=== PATIENT | male | born 1960 | race Caucasian/White ===

== ENCOUNTER 2020-07-28 14:12 | Emergency (ER) | payer OTHER, SELFPAY ==
[2020-07-28 14:14] VITALS: BP 177/104; PULSE 92; RESP 14; TEMP 36.4; O2SAT 99; BMI 23.8
--- NOTE | 2020-07-28 14:25 | DI.RAD.S_ITS ---
PROCEDURE: XR CHEST 1V INDICATIONS: chest pain TECHNIQUE: One view of the chest was acquired. COMPARISON: None. FINDINGS: Surgical changes and devices: None. Lungs and pleura: Lungs are clear. No pleural effusions or pneumothorax. Mediastinum: Mediastinal contours appear normal. Heart size is normal. Bones and chest wall: No suspicious bony lesions. Overlying soft tissues appear unremarkable. IMPRESSION: No acute disease. Dictated by: Rahul Vela M.D. on 07/28/2020 at 15:01 Approved by: Rahul Vela M.D. on 07/28/2020 at 15:02
[2020-07-28] MEDS: KETOROLAC 60 MG/2 ML VIAL 30 MG IV (14:45)
--- NOTE | 2020-07-28 14:45 | ED.NECK ---
HPI - Neck Pain/Injury <BETH Manning - Last Filed: 07/28/20 17:49> General Chief Complaint: Neck Pain/Injury Stated Complaint: Neck, shoulder and left arm pain Time Seen by Provider: 07/28/20 14:24 Mode of arrival: EMS Limitations: no limitations History of Present Illness HPI Narrative: 60yo male current smoker, presents emergency department for left-sided arm pain that started this morning. Patient states yesterday he had some neck pain and a dull aching headache, he went to the chiropractor and had his neck adjusted. He applied ice to the back of his neck and icy Hot cream which helped. Patient states he was pain free when he went to bed. This morning when he woke up he felt pain-free, however he was in the bathroom shaving his face when he developed a sudden left sided sharp stabbing pain that radiated down his arm. Patient states during this time he felt flushed and he felt like his face was red. Patient called 911 as he was concerned he may have been having heart attack. He denied chest pain or shortness of breath during this incident. When patient arrives via EMS, he reports continued left arm pain that is worse with movement and palpation to his left shoulder. Patient states the pain is worse when he moves his left arm across his chest. He denies any neck pain, chest pain, shortness of breath, nausea, vomiting, diarrhea, vision changes, headaches, weakness, numbness, tingling, or any other concerns. Patient states he takes a daily aspirin for medication and nothing else. He denies any cardiac history. 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 Related Data Home Medications Medication Instructions Recorded Confirmed aspirin 81 mg PO QDAY #0 04/17/16 02/24/18 Previous Rx's Medication Instructions Recorded Lactobacillus acidophilus 1.5 mg 100 mmu cells PO DAILY #60 cap 02/24/18 (250 million cell) capsule cyclobenzaprine 10 mg tablet 10 mg PO BEDTIME #20 tab 02/24/18 cyclobenzaprine 10 mg PO TID PRN #10 tab 07/28/20 Allergies Allergy/AdvReac Type Severity Reaction Status Date / Time No Known Drug Allergies Allergy Verified 07/28/20 14:16 Review of Systems <BETH Manning - Last Filed: 07/28/20 17:49> Review of Systems Narrative: REVIEW OF SYSTEMS: GENERAL: Denies fever. HENT: No head trauma. EYES: No loss of vision, double vision, eye pain, or irritation. CARDIOVASCULAR: No chest pain or syncope. RESPIRATORY: No shortness of breath or cough. GASTROINTESTINAL: No nausea or vomiting. GENITOURINARY: No flank pain. . MUSCULOSKELETAL: Reports left arm pain, see HPI. INTEGUMENTARY: No rash, lesions, or pruritus. NEURO: No numbness, tingling, memory loss, or confusion. PSYCH: No behavior or mood changes. Patient History <BETH Manning - Last Filed: 07/28/20 17:49> Medical History Pure hypercholesterolemia (04/17/16) Social History Smoking Status: Current every day smoker alcohol intake: current Smoking Status: Current every day smoker alcohol intake frequency: a few times a week Substance Use Type: does not use Exam <BETH Manning - Last Filed: 07/28/20 17:49> Initial Vital Signs Initial Vital Signs: Vital Signs Temperature 97.6 F 07/28/20 14:14 Pulse Rate 92 H 07/28/20 14:14 Respiratory Rate 14 07/28/20 14:14 Blood Pressure 177/104 H 07/28/20 14:14 Pulse Oximetry 99 07/28/20 14:14 PHYSICAL EXAMINATION: GENERAL: Awake and alert. HENT: Normocephalic, atraumatic. Oral mucosa is pink and moist. EYES: PERRLA, EOMIs, Conjunctiva pink, sclera white, no periorbital swelling. NECK: No cervical neck tenderness with palpation. Increased left arm pain with neck rotation to the left. CARDIOVASCULAR: S1 and S2 sounds normal. Regular rate and rhythm, no murmurs, clicks, or bruits. No pedal edema. RESPIRATORY: Normal respiratory rate, trachea midline, airway patent. No stridor, nasal flaring or accessory muscle use. Lungs are clear in all oh[place] without wheeze, rhonchi, or crackles. GASTROINTESTINAL: Bowel sounds normoactive. Abdomen is soft and non-tender. No organomegaly. MUSCULOSKELETAL: Increased/reproducible pain with abduction of left arm across chest. Reproducible pain with palpation of trapezius muscle approximately midclavicular line between shoulder and neck. Patient drops with palpation of this area. 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 EXTREMITIES: CMS intact. Moves all extremities. SKIN: Warm, dry, soft, appropriate color for ethnicity. No lesions, rashes, or wounds. NEURO: Alert and Oriented X 3. Good coordination. No ataxia, or sensory deficits, or cognitive issues. Cranial Nerves: II: Visual oh[place] grossly intact. III & IV & : EOMIs V: Able to open and close jaw. VII: Facial movements symetrical. Able to close eyelids tightly. VIII: Hearing grossly intact, adequate balance. X: Uvula pronation intact. XI: Patient is able to shrug shoulders. XII: Patient is able to stick out tongue and move it side to side. <Niall Van DO - Last Filed: 07/28/20 17:56> Initial Vital Signs Initial Vital Signs: Vital Signs Temperature 97.6 F 07/28/20 14:14 Pulse Rate 92 H 07/28/20 14:14 Respiratory Rate 14 07/28/20 14:14 Blood Pressure 177/104 H 07/28/20 14:14 Pulse Oximetry 99 07/28/20 14:14 Course <BETH Manning - Last Filed: 07/28/20 17:49> Course Course Narrative: Patient reported significant improvement in pain after administration of Toradol. Upon discharge, patient was on the lobby and reported worsening pain with movement. Patient contacted the nurse, requesting another dose of pain medication prior to leaving. Patient was given a dose of cyclobenzaprine, explained that he was given a script for the muscle relaxers well. Encouraged to take ibuprofen. Encouraged to follow up for further evaluation. Orders Ordered: ED Orders 07/28/20 14:20 EKG-12 Lead Stat 07/28/20 14:25 XR chest 1V Stat Complete Blood Count AUTO DIFF Stat 07/28/20 15:21 Comprehensive Metabolic Panel Stat Lipase Stat Troponin & CK Cardiac Panel Stat Discontinued Medications Cyclobenzaprine HCl (Cyclobenzaprine 10 Mg Tablet) 10 mg PO NOW ONE Stop: 07/28/20 16:17 Last Admin: 07/28/20 16:21 Dose: 10 mg Documented by: RAMANA Ketorolac Tromethamine (Ketorolac 60 Mg/2 Ml Vial) 30 mg IV NOW ONE Stop: 07/28/20 14:28 Last Admin: 07/28/20 14:45 Dose: 30 mg Documented by: TY Consultations Consultation #1: Patient staffed with Dr. Van discussed test, test results, plan of care. Vital Signs Vital signs: Vital Signs - 8 hr 07/28/20 14:14 07/28/20 14:50 07/28/20 14:51 Temperature 97.6 F Pulse Rate 92 H 75 78 Respiratory Rate 14 13 16 Blood Pressure 177/104 H 148/80 H Pulse Oximetry 99 97 98 07/28/20 15:00 07/28/20 16:06 Temperature Pulse Rate 71 Respiratory Rate 18 16 Blood Pressure 137/86 Pulse Oximetry 98 99 <Niall Van DO - Last Filed: 07/28/20 17:56> Orders Ordered: ED Orders 07/28/20 14:20 EKG-12 Lead Stat 07/28/20 14:25 XR chest 1V Stat Complete Blood Count AUTO DIFF Stat 07/28/20 15:21 Comprehensive Metabolic Panel Stat Lipase Stat Troponin & CK Cardiac Panel Stat Discontinued Medications Cyclobenzaprine HCl (Cyclobenzaprine 10 Mg Tablet) 10 mg PO NOW ONE Stop: 07/28/20 16:17 Last Admin: 07/28/20 16:21 Dose: 10 mg Documented by: RMAANA Ketorolac Tromethamine (Ketorolac 60 Mg/2 Ml Vial) 30 mg IV NOW ONE Stop: 07/28/20 14:28 Last Admin: 07/28/20 14:45 Dose: 30 mg Documented by: TY Vital Signs Vital signs: Vital Signs - 8 hr 07/28/20 14:14 07/28/20 14:50 07/28/20 14:51 Temperature 97.6 F Pulse Rate 92 H 75 78 Respiratory Rate 14 13 16 Blood Pressure 177/104 H 148/80 H Pulse Oximetry 99 97 98 07/28/20 15:00 07/28/20 16:06 Temperature Pulse Rate 71 Respiratory Rate 18 16 Blood Pressure 137/86 Pulse Oximetry 98 99 MDM - Neck Pain/Injury <BETH Manning - Last Filed: 07/28/20 17:49> Medical Records Attestation: I reviewed the patient's medical records. Lab Data Attestation: I reviewed the patient's lab results. Result diagrams: 07/28/20 14:25 07/28/20 15:21 Labs: Lab Results 07/28/20 07/28/20 Range/Units 14:25 15:21 WBC 9.5 (4.5-11.0) X10^3/uL RBC 4.84 (4.5-5.9) X10^6/uL Hgb 15.8 (13.5-17.5) g/dL Hct 47.1 (41-53) % MCV 97.5 (80-100) fL MCH 32.7 (26-34) PG MCHC 33.5 (30-36) % RDW 14.0 (11.6-14.8) % Plt Count 229 (150-400) X10^3/uL Neut % (Auto) 65.2 (50-75) % Lymph % (Auto) 27.3 (25-40) % Warren % (Auto) 6.0 (3-14) % Eos % (Auto) 0.9 L (2-4) % Baso % (Auto) 0.6 (0-2) % Neut # (Auto) 6200 (5345-2426) /uL Lymph # (Auto) 2600 (9745-5394) /uL Warren # (Auto) 600 (0-900) /uL Eos # (Auto) 100 (0-450) /uL Baso # (Auto) 100 (0-100) /uL Sodium 138 (137-145) mmol/L Potassium 3.9 (3.4-5.1) mmol/L Chloride 105 (98-107) mmol/L Carbon Dioxide 24 (22-32) mmol/L BUN 13 (9-20) mg/dL Creatinine 0.57 L (0.66-1.25) mg/dL Estimated GFR > 60.0 (>60) mL/min BUN/Creatinine Ratio 22.8 H (6-22) Glucose 102 (80-110) mg/dL Calcium 9.2 (8.4-10.2) mg/dL Total Bilirubin 0.4 (0.2-1.3) mg/dL AST 21 (17-59) IU/L ALT 14 (<50) IU/L Alkaline Phosphatase 89 (38-126) U/L Total Creatine Kinase 45 L (55-170) U/L CK-MB (CK-2) TNP CK-MB (CK-2) Rel Index TNP Troponin I < 0.012 (0.01-0.034) ng/mL Total Protein 7.4 (6.3-8.2) g/dL Albumin 4.3 (3.5-5.0) g/dL Globulin 3.1 (1.7-4.1) g/dL Albumin/Globulin Ratio 1.4 (1.0-2.8) Lipase 30 (23-300) U/L Imaging Data Chest x-ray: Radiologist's Impression: [address] [id number] ReportSigned Patient: Bal JarquinMR#: [id number]: 9Acct:[id number]/Sex: 60 / MDate of Service: 07/28/20Loc: EDAccession Number: [id number] Procedure: XR chest 1V Ordering Provider: Liane Hsu PROCEDURE: XR CHEST 1V INDICATIONS: chest pain TECHNIQUE: One view of the chest was acquired. COMPARISON: None. FINDINGS: Surgical changes and devices: None. Lungs and pleura: Lungs are clear. No pleural effusions or pneumothorax. Mediastinum: Mediastinal contours appear normal. Heart size is normal. Bones and chest wall: No suspicious bony lesions. Overlying soft tissues appear unremarkable. IMPRESSION: No acute disease. Dictated by: Rahul Vela M.D. on 07/28/2020 at 15:01 Approved by: Rahul Vela M.D. on 07/28/2020 at 15:02 ECG Data Interpretation: 1416: Sinus rhythm, rate 95, WI interval 108, QTC 464. No ST elevation or ST depression. No T-wave inversion. Occasional PACs noted. EKG also viewed by Dr. Van per protocol. [facility] Narrative Medical decision making narrative: 60-year-old male presents emergency department for left arm pain. I suspect this is most likely related to musculoskeletal issues, muscle spasms, and nerve pain associated with neck pain. Less concern for cardiac etiology given reproducible pain with movement and palpation to muscle spasms. Negative troponin, EKG within normal limits, x-ray non concerning. Less concern for acute CVA or TIA given intact neuro examination, lack of numbness or tingling, and reproducible symptoms with movement. Discussed with patient that is important to follow-up with a primary care provider to discuss further testing and evaluation such as physical therapy if needed. He had significant improvement with Toradol, he later had more pain with movement upon discharge. Was given cyclobenzaprine to help with muscle spasms. Return precautions given for new or worsening symptoms. Patient agreed to plan of care verbalized understanding. <Niall Van, DO - Last Filed: 07/28/20 17:56> Lab Data Labs: Lab Results 07/28/20 07/28/20 Range/Units 14:25 15:21 WBC 9.5 (4.5-11.0) X10^3/uL RBC 4.84 (4.5-5.9) X10^6/uL Hgb 15.8 (13.5-17.5) g/dL Hct 47.1 (41-53) % MCV 97.5 (80-100) fL MCH 32.7 (26-34) PG MCHC 33.5 (30-36) % RDW 14.0 (11.6-14.8) % Plt Count 229 (150-400) X10^3/uL Neut % (Auto) 65.2 (50-75) % Lymph % (Auto) 27.3 (25-40) % Warren % (Auto) 6.0 (3-14) % Eos % (Auto) 0.9 L (2-4) % Baso % (Auto) 0.6 (0-2) % Neut # (Auto) 6200 (1250-5999) /uL Lymph # (Auto) 2600 (2911-0840) /uL Warren # (Auto) 600 (0-900) /uL Eos # (Auto) 100 (0-450) /uL Baso # (Auto) 100 (0-100) /uL Sodium 138 (137-145) mmol/L Potassium 3.9 (3.4-5.1) mmol/L Chloride 105 (98-107) mmol/L Carbon Dioxide 24 (22-32) mmol/L BUN 13 (9-20) mg/dL Creatinine 0.57 L (0.66-1.25) mg/dL Estimated GFR > 60.0 (>60) mL/min BUN/Creatinine Ratio 22.8 H (6-22) Glucose 102 (80-110) mg/dL Calcium 9.2 (8.4-10.2) mg/dL Total Bilirubin 0.4 (0.2-1.3) mg/dL AST 21 (17-59) IU/L ALT 14 (<50) IU/L Alkaline Phosphatase 89 (38-126) U/L Total Creatine Kinase 45 L (55-170) U/L CK-MB (CK-2) TNP CK-MB (CK-2) Rel Index TNP Troponin I < 0.012 (0.01-0.034) ng/mL Total Protein 7.4 (6.3-8.2) g/dL Albumin 4.3 (3.5-5.0) g/dL Globulin 3.1 (1.7-4.1) g/dL Albumin/Globulin Ratio 1.4 (1.0-2.8) Lipase 30 (23-300) U/L Discharge Plan Departure Patient Disposition: Home Clinical Impression: Muscle spasm Neck strain Qualifiers: Encounter type: initial encounter Qualified Code(s): S16.1XXA - Strain of muscle, fascia and tendon at neck level, initial encounter Instructions: DI for Neck Pain Activity Restrictions/Additional Instructions: Thank you for entrusting me with your care today. As discussed, your chest x-ray, laboratory work, and EKG are non-remarkable. I suspect your pain is most likely caused from your neck, CV due to muscle spasms and muscle strain. I suggest ice, hot packs, and ibuprofen 400-600mg every 6 hours for the next 2-3 days as needed for pain. You can take Pepcid to help with protect her stomach if needed, this is [id number]. Perform gentle arm stretches. I have given you a muscle relaxer, this can make you drowsy, do not drive with this medication. Follow-up with your primary care provider in the next 1-2 weeks for further evaluation. ED/Return precautions given for new or worsening symptoms. Prescriptions: New cyclobenzaprine 10 mg tablet 10 mg PO TID PRN (Reason: muscle spasm) Qty: 10 RF: 0 No Action Lactobacillus acidophilus [Probiotic Acidophilus] 1.5 mg (250 million cell) capsule 100 mmu cells PO DAILY Qty: 60 RF: 0 cyclobenzaprine 10 mg tablet 10 mg PO BEDTIME Qty: 20 RF: 0 aspirin 81 MG tablet,chewable 81 mg PO QDAY Qty: 0 RF: 0 <Niall Van, DO - Last Filed: 07/28/20 17:56> [facility]: Dr Van Co-Sign Statement: I was available for consultation during this patient's emergency department visit. This chart is signed by myself for administrative purposes only. I did not have direct contact with this patient during this visit. They were seen independently by the [facility].
[2020-07-28 14:47] LABS: Add Manual Diff / Slide Review NO; Basophils Absolute Auto 100 /uL (0-100); Basophils Percent Auto 0.6 % (0-2); Eosinophils Absolute Auto 100 /uL (0-450); Eosinophils Percent Auto 0.9 % (2-4); Hematocrit 47.1 % (41-53); Hemoglobin 15.8 g/dL (13.5-17.5); Lymphocytes Absolute Auto 2600 /uL (1100-4500); Lymphocytes Percent Auto 27.3 % (25-40); Mean Corpuscular HGB Conc 33.5 % (30-36); Mean Corpuscular Hemoglobin 32.7 PG (26-34); Mean Corpuscular Volume 97.5 fL (80-100); Monocytes Absolute Auto 600 /uL (0-900); Neutrophils Absolute Auto 6200 /uL (1500-7000); Neutrophils Percent Auto 65.2 % (50-75); Platelet Count 229 X10^3/uL (150-400); Red Blood Cell Count 4.84 X10^6/uL (4.5-5.9); White Blood Cell Count 9.5 X10^3/uL (4.5-11.0)
[2020-07-28 14:50] VITALS: PULSE 75; RESP 13; O2SAT 97
[2020-07-28 14:51] VITALS: BP 148/80; PULSE 78; RESP 16; O2SAT 98
[2020-07-28 15:00] VITALS: RESP 18; O2SAT 98
[2020-07-28 15:20] LABS: Troponin I < 0.012 ng/mL (0.01-0.034)
[2020-07-28 15:40] LABS: Alanine Aminotransferase 14 IU/L (<50); Albumin 4.3 g/dL (3.5-5.0); Albumin Globulin Ratio 1.4 (1.0-2.8); Alkaline Phosphatase 89 U/L (38-126); Aspartate Aminotransferase 21 IU/L (17-59); BUN Creatinine Ratio 22.8 (6-22); Bilirubin Total 0.4 mg/dL (0.2-1.3); Blood Urea Nitrogen 13 mg/dL (9-20); Calcium 9.2 mg/dL (8.4-10.2); Carbon Dioxide 24 mmol/L (22-32); Chloride 105 mmol/L (98-107); Creatine Kinase 45 U/L (55-170); Estimated Glomerular Filt Rate > 60.0 mL/min (>60); Globulin 3.1 g/dL (1.7-4.1); Glucose 102 mg/dL (80-110); HEMOLYSIS < 15 (0-50); Lipase 30 U/L (23-300); Potassium 3.9 mmol/L (3.4-5.1); Sodium 138 mmol/L (137-145); Total Protein 7.4 g/dL (6.3-8.2)
[2020-07-28 16:06] VITALS: BP 137/86; PULSE 71; RESP 16; O2SAT 99
[2020-07-28] MEDS: CYCLOBENZAPRINE 10 MG TABLET PO (16:21)
== END 2020-07-28 16:07 | disposition home or self-care (01) ==
PROVIDERS: Emergency Provider Nurse Practitioner
DX: M62.838 Other muscle spasm (principal); S16.1XXA Strain of muscle, fascia and tendon at neck level, initial encounter; R51.9 Headache, unspecified; R07.9 Chest pain, unspecified; Y99.0 Civilian activity done for income or pay
CPT/HCPCS: 36415; 71045; 80053; 82550; 83690; 84484; 85025; 93005; 93010; 96374; 99284; J1885

== ENCOUNTER → 2020-08-18 18:51 | Outpatient (CLI) | payer OTHER, SELFPAY ==
--- NOTE | 2020-08-18 | DI.MRI.S_ITS ---
PROCEDURE: MR CERVICAL SPINE WO CON INDICATIONS: RADICULOPATHY, CERVICAL REGION TECHNIQUE: Noncontrast sagittal T1 spin echo and T2 fast spin echo, sagittal STIR, foraminal oblique sagittal T2 fast spin echo, and axial gradient echo or T2 fast spin echo through the cervical spine. COMPARISON: [facility] [place], CR, XR CERVICAL SPINE 6+ VIEWS, 08/01/2020, 10:52. FINDINGS: Image quality: Significantly degraded by motion artifact. Alignment and Curvature: Loss of normal cervical lordosis. Mild grade 1 retrolisthesis of C6 on C7. Bone Marrow: Marrow demonstrates normal overall signal. Mild reactive signal within the endplates adjacent to the C4-C5, C5-C6, and C6-C7 intervertebral discs. Spinal Cord: Visualized spinal cord has normal size and signal. No cerebellar tonsillar herniation. Paraspinous Soft Tissues: No paravertebral masses. Prevertebral soft tissues are normal in thickness. C2-C3: Mild disc desiccation and diffuse disc bulge. Mild facet and ligamentum flavum hypertrophy. Mild canal stenosis. Mild right greater than left foraminal stenosis. C3-C4: Mild disc desiccation and diffuse disc bulge. Mild facet and uncovertebral hypertrophy bilaterally. Moderate canal stenosis. Moderate to severe right foraminal stenosis. Mild left foraminal stenosis. Possible right C4 nerve root compression. C4-C5: Mild disc height loss and desiccation. Mild diffuse disc bulge. Mild facet and uncovertebral hypertrophy bilaterally. Mild canal stenosis. Moderate to high-grade right foraminal stenosis. Mild left foraminal stenosis. Possible right C5 nerve root compression. C5-C6: Moderate disc desiccation. Mild diffuse disc bulge. Mild facet and uncovertebral hypertrophy bilaterally. Mild canal stenosis. Severe right and moderate left foraminal stenosis. Right C6 nerve root compression. C6-C7: Moderate disc height loss and desiccation. Mild diffuse disc bulge. Moderate facet and uncovertebral hypertrophy bilaterally. Moderate to high severe canal stenosis. Mild cord flattening. Severe bilateral foraminal stenosis with bilateral C7 nerve root compression. C7-T1: Mild disc desiccation. Mild facet and uncovertebral hypertrophy bilaterally. Mild canal stenosis. Moderate bilateral foraminal stenosis. IMPRESSION: 1. Significantly limited examination secondary to motion artifact. Repeat examination, possibly with anesthesia support, is recommended for confirmation of findings prior to any cervical spinal intervention. 2. Multilevel degenerative disc and facet disease, as well as uncovertebral hypertrophy. 3. Multilevel canal stenoses, worst at C6-C7, where there is mild cord flattening. 4. Multilevel foraminal stenoses, worst at C3-C4, C4-C5, C5-C6, and C6-C7, where there is associated intraforaminal nerve root compression. Recommend correlation with clinical symptoms to ascertain relevance of this finding. Dictated by: Meagan Pate M.D. on 08/19/2020 at 8:52 Approved by: Meagan Pate M.D. on 08/19/2020 at 8:58
== END ==
PROVIDERS: Referring Provider Preventive Medicine Occupational Medicine; Visit Provider Preventive Medicine Occupational Medicine
DX: M54.12 Radiculopathy, cervical region (principal); M50.31 Other cervical disc degeneration, high cervical region; M48.02 Spinal stenosis, cervical region
CPT/HCPCS: 72141